=== PATIENT | female | born 1985 | race Caucasian/White ===

== ENCOUNTER 2019-06-22 21:28 | Emergency (ER) | payer BC ==
[2019-06-22 21:37] VITALS: RESP 16; TEMP 98.5
[2019-06-22 22:06] LABS: Basophils # (A) 0.1 k/uL (0-0.2); Basophils % (A) 1 %; Eosinophils # (A) 0.1 k/uL (0-0.7); Eosinophils % (A) 1 %; HCT 44.6 % (34.0-46.0); HGB 14.8 gm/dL (11.4-16.0); Lymphocytes # (A) 3.1 k/uL (1.0-4.8); Lymphocytes % (A) 28 %; MCH 29.8 pg (25.0-35.0); MCHC 33.3 g/dL (31.0-37.0); MCV 89.5 fL (80.0-100.0); Mean Platelet Volume 7.8; Monocytes # (A) 0.5 k/uL (0-1.0); Monocytes % (A) 4 %; Neutrophils # (A) 7.1 k/uL (1.3-7.7); Neutrophils % (A) 64 %; Platelet Count 303 k/uL (150-450); RBC 4.98 m/uL (3.80-5.40); RDW 11.8 % (11.5-15.5); WBC 11.1 k/uL (3.8-10.6)
[2019-06-22 22:16] LABS: ALT 31 U/L (4-34); AST 31 U/L (14-36); African American GFR (CKD) >90 (>60 ml/min/1.73 sqM); Albumin 4.9 g/dL (3.5-5.0); Alkaline Phosphatase 68 U/L (38-126); Anion Gap 13 mmol/L; Blood Urea Nitrogen 13 mg/dL (7-17); Calcium 9.4 mg/dL (8.4-10.2); Carbon Dioxide 19 mmol/L (22-30); Chloride 107 mmol/L (98-107); Glucose 91 mg/dL (74-99); Magnesium 1.9 mg/dL (1.6-2.3); Non-African American GFR(CKD) >90 (>60 ml/min/1.73 sqM); Potassium 4.1 mmol/L (3.5-5.1); Sodium 139 mmol/L (137-145); Total Bilirubin 0.3 mg/dL (0.2-1.3); Total Protein 8.4 g/dL (6.3-8.2)
[2019-06-22 22:34] LABS: INR 0.9 (<1.2); Prothrombin Time 9.7 sec (9.0-12.0)
--- NOTE | 2019-06-22 22:56 | XR ---
EXAMINATION TYPE: XR chest 2V DATE OF EXAM: 06/22/2019 COMPARISON: NONE HISTORY: Chest pain TECHNIQUE: 2 views FINDINGS: Heart and mediastinum are normal. Lungs are clear. Diaphragm is normal. Bony thorax appears normal. IMPRESSION: Normal chest.
[2019-06-22 23:01] LABS: D-Dimer 0.61 mg/L FEU (<0.60)
--- NOTE | 2019-06-22 23:04 | ED ---
Chest Pain HPI - General Chief Complaint: Chest Pain Stated Complaint: Chest Pain Time Seen by Provider: 06/22/19 21:35 Source: patient Mode of arrival: wheelchair Limitations: no limitations - History of Present Illness Initial Comments: The patient is a 34-year-old female with no past medical history of presents emergency room with reported chest pain. She states that she was at home talking to her about work-related issues when she began having sudden onset of left-sided chest pain with radiation into her left arm. Also reports to left arm numbness. States that it made her short of breath. [place] like she was going to pass out. She told her and they immediately got into the car and drove 35 minutes to the hospital. By the time she arrived to the hospital the pain had completely resolved. She denies a history of similar in the past. No previous history of cardiac disease or pulmonary issues. No history of DVT or PE. No family history of blood clotting disorders or sudden cardiac . Denies any calf pain or swelling. No ripping or tearing sensation to her back. No family history of connective tissue disorders. Patient is a nonsmoker. Has an IUD denies . No abdominal pain, nausea, vomiting or diaphoresis. There are no other alleviating, precipitating or modifying factors - Related Data Allergies Allergy/AdvReac Type Severity Reaction Status Date / Time tetracycline AdvReac mom is Verified 06/22/19 21:37 allergic Review of Systems ROS Statement: Those systems with pertinent positive or pertinent negative responses have been documented in the HPI. ROS Other: All systems not noted in ROS Statement are negative. EKG Findings - EKG Comments: EKG Findings:: EKG demonstrates normal sinus rhythm with a ventricular rate of 72. Current 122. QRS 92. QTC of 455. There is an inverted T-wave in lead 3. No acute ST segment elevations. Past Medical History Past Medical History: No Reported History History of Any Multi-Drug Resistant Organisms: None Reported Past Surgical History: No Surgical Hx Reported Past Psychological History: No Psychological Hx Reported Smoking Status: Never smoker Past Alcohol Use History: None Reported Past Drug Use History: None Reported General Exam Limitations: no limitations General appearance: alert, in no apparent distress Head exam: Present: atraumatic, normocephalic, normal inspection Eye exam: Present: normal appearance, PERRL, EOMI. Absent: scleral icterus, conjunctival injection, periorbital swelling ENT exam: Present: normal exam, mucous membranes moist Neck exam: Present: normal inspection. Absent: tenderness, meningismus, lymphadenopathy Respiratory exam: Present: normal lung sounds bilaterally. Absent: respiratory distress, wheezes, rales, rhonchi, stridor Cardiovascular Exam: Present: regular rate, normal rhythm, normal heart sounds. Absent: systolic murmur, diastolic murmur, rubs, gallop, clicks GI/Abdominal exam: Present: soft, normal bowel sounds. Absent: distended, tenderness, guarding, rebound, rigid Extremities exam: Present: normal inspection, full ROM, normal capillary refill. Absent: tenderness, pedal edema, joint swelling, calf tenderness Back exam: Present: normal inspection Neurological exam: Present: alert, oriented X3, CN II-XII intact Psychiatric exam: Present: normal affect, normal mood Skin exam: Present: warm, dry, intact, normal color. Absent: rash Course Vital Signs 06/22/19 06/22/19 06/22/19 21:32 22:30 23:00 Temperature 98.5 F Pulse Rate 73 84 75 Respiratory 16 16 Rate Blood Pressure 125/85 104/66 119/88 O2 Sat by Pulse 99 96 97 Oximetry 06/23/19 00:03 Temperature 98.5 F Pulse Rate 75 Respiratory 16 Rate Blood Pressure 119/88 O2 Sat by Pulse 97 Oximetry Chest Pain MDM - MDM Upon arrival the patient was placed in room 6. A thorough history and physical exam was performed. Laboratory studies were conducted and a 12-lead EKG was performed. lab studies are remarkable for a d-dimer of 0.61. Troponin is negative. Chest x-ray is performed which demonstrates no acute process. I did discuss results laboratory studies with the patient. Because of her elevated d- dimer did recommend a CT of the chest for which the patient did agree to. She is aware of the risks of radiation and does agree to this and denies . CT demonstrates no evidence of pulmonary embolism. I discussed results of the patient. She continues to remain asymptomatic. I recommended a second cardiac enzyme however the patient refused. I did recommend she follow up with her primary care physician Holter monitoring and echo. Patient understood this. If she has a new or worsening symptoms she should return to the emergency room. The patient was in agreement treatment plan she is discharged home in stable condition Disposition Clinical Impression: Chest pain Disposition: HOME SELF-CARE Condition: Stable Instructions (If sedation given, give patient instructions): Chest Pain (ED) Additional Instructions: Please follow up with your primary care doctor. I did recommend Holter monitoring and echo. Return to the emergency room for any new or worsening symptoms Is patient prescribed a controlled substance at d/c from ED?: No Referrals: None,Stated [Primary Care Provider] - 1-2 days Time of Disposition: 23:56
--- NOTE | 2019-06-22 23:35 | CT ---
EXAMINATION TYPE: CT chest angio for PE DATE OF EXAM: 06/22/2019 COMPARISON: None HISTORY: elevated d-dimer. Rule out PE CT DLP: 640.2 mGycm Automated exposure control for dose reduction was used. CONTRAST: Performed with IV Contrast, patient injected with 80 mL of Isovue 370. There are 3-D post processed images. The lungs are clear of infiltrate. There is no evidence of a pulmonary mass. There is no pleural effu funmilayo. There is no pericardial effusion. Upper abdominal soft tissues are intact. There are no hilar masses. There is no mediastinal adenopathy. There is normal contrast opacification of the pulmonary arteries. There are no filling defect. Thoracic aorta is intact. There is no aneury sm or dissection. Thoracic spine is intact. There is no compression fracture. Sternum is intact. The ribs appear intact . IMPRESSION: Negative exam. No evidence of pulmonary embolism.
[2019-06-22 23:59] VITALS: BP 119/88; PULSE 75
== END 2019-06-23 00:05 | disposition home or self-care (01) ==
LOC: EC 21:28
DX: R07.9 Chest pain, unspecified (principal); R79.89 Other specified abnormal findings of blood chemistry; Z88.1 Allergy status to other antibiotic agents
CPT/HCPCS: 99285; 36415; 93005; 85379; 80053; 83735; 84484; 85025; 85610; 85730; 71046; 71275; Q9967

== ENCOUNTER 2019-07-08 14:38 | Emergency (ER) | payer BC ==
[2019-07-08 14:50] VITALS: RESP 18
--- NOTE | 2019-07-08 15:55 | ED ---
Skin/Abscess/FB HPI - General Chief complaint: Skin/Abscess/Foreign Body Stated complaint: anal abcess Time Seen by Provider: 07/08/19 15:06 Source: patient Mode of arrival: ambulatory Limitations: no limitations - History of Present Illness Initial comments: 34-year-old feel presenting today for chief complaint of abscess. Patient states she has pain to the left or the anus and has felt hard into this is been ongoing for 2 days. Patient denies any redness but he has drainage fever general malaise chills. Patient denies any purulent drainage from the rectum or bloody stools. Denies abdominal pain, history of crohns or ulcerative colitis. Patient denies any additional complaint or this occurring before. Remaining ROS (-) - Related Data Previous Rx's Medication Instructions Recorded Amoxic-Pot Clav 875-125Mg 1 tab PO Q12HR 7 Days #14 tab 07/08/19 [Augmentin 875-125] Allergies Allergy/AdvReac Type Severity Reaction Status Date / Time tetracycline AdvReac mom is Verified 07/08/19 14:49 allergic Review of Systems ROS Statement: Those systems with pertinent positive or pertinent negative responses have been documented in the HPI. ROS Other: All systems not noted in ROS Statement are negative. Past Medical History Past Medical History: No Reported History History of Any Multi-Drug Resistant Organisms: None Reported Past Surgical History: Adenoidectomy Past Psychological History: No Psychological Hx Reported Smoking Status: Never smoker Past Alcohol Use History: None Reported Past Drug Use History: None Reported General Exam - General Exam Comments Initial Comments: General: The patient is awake and alert, in no distress, and does not appear acutely ill. Eye: Pupils are equal, round and reactive to light, extra-ocular movements are intact. No nystagmus. There is normal conjunctiva bilaterally. No signs of icterus. Cardiovascular: There is a regular rate and rhythm. No murmur, rub or gallop is appreciated. Respiratory: Lungs are clear to auscultation, respirations are non-labored, breath sounds are equal. No wheezes, stridor, rales, or rhonchi. Gastrointestinal: Soft, non-distended, non-tender abdomen without masses or organomegaly noted. There is no rebound or guarding present. 4cm from anus laterally to the left midline, indurated around roughly 2cm, no redness, no spontaneous drainage Musculoskeletal: Normal ROM, no tenderness. Strength 5/5. Sensation intact. Radial pulses equal bilaterally 2+. Neurological: A&O x 3. CN II-XII intact grossly, There are no obvious motor or sensory deficits. Coordination appears grossly intact. Speech is normal. Skin: Skin is warm and dry and no rashes or lesions are noted. Psychiatric: Cooperative, appropriate mood & affect, normal judgment. Limitations: no limitations Course Vital Signs 07/08/19 07/08/19 14:48 17:36 Temperature 98.0 F 98.1 F Pulse Rate 116 H 89 Respiratory 18 18 Rate Blood Pressure 121/84 127/77 O2 Sat by Pulse 100 98 Oximetry Procedures - Incision & Drainage Consent Obtained: verbal consent Indication: abscess Site: buttock Size (cm): 2 Anesthetic Used: lidocaine 1% Amount (mLs): 2 I&D Cleaning Method: Iodine Sterile Field Used?: No Scalpel Used: #11 Needle Aspiration Performed?: No Irrigation Performed?: No I&D Drainage Obtained: Pus, Blood Patient Tolerated Procedure: well Medical Decision Making - Medical Decision Making 34yo female presenting today for cc possible abscess x 2 days. There was palpable induration concerning for perianal abscess no anal discharge or bleeding symptoms 2 days. No history. I&D was performed and was able to get 2 mL of purulent drainage inoculations were broken up. Patient will be initiated on Augmentin, and discharge her surgical follow-up. The patient is small no packing at this time. Discussed importance of return parameters for fevers, increasing swelling/pain or increasing drainage-she is agreeable to this care plan and discharge at this time. - Lab Data Result diagrams: 07/08/19 15:57 07/08/19 15:57 Lab Results 07/08/19 07/08/19 Range/Units 15:57 15:57 WBC 11.2 H (3.8-10.6) k/uL RBC 4.58 (3.80-5.40) m/uL Hgb 13.9 (11.4-16.0) gm/dL Hct 41.7 (34.0-46.0) % MCV 91.0 (80.0-100.0) fL MCH 30.2 (25.0-35.0) pg MCHC 33.2 (31.0-37.0) g/dL RDW 11.9 (11.5-15.5) % Plt Count 273 (150-450) k/uL Neutrophils % 78 % Lymphocytes % 16 % Monocytes % 5 % Eosinophils % 0 % Basophils % 0 % Neutrophils # 8.7 H (1.3-7.7) k/uL Lymphocytes # 1.7 (1.0-4.8) k/uL Monocytes # 0.5 (0-1.0) k/uL Eosinophils # 0.0 (0-0.7) k/uL Basophils # 0.1 (0-0.2) k/uL Sodium 137 (137-145) mmol/L Potassium 4.4 (3.5-5.1) mmol/L Chloride 101 (98-107) mmol/L Carbon Dioxide 28 (22-30) mmol/L Anion Gap 8 mmol/L BUN 9 (7-17) mg/dL Creatinine 0.73 (0.52-1.04) mg/dL Est GFR (CKD-EPI)AfAm >90 (>60 ml/min/1.73 sqM) Est GFR (CKD-EPI)NonAf >90 (>60 ml/min/1.73 sqM) Glucose 93 (74-99) mg/dL Calcium 9.8 (8.4-10.2) mg/dL Total Bilirubin 0.6 (0.2-1.3) mg/dL AST 23 (14-36) U/L ALT 21 (4-34) U/L Alkaline Phosphatase 75 (38-126) U/L Total Protein 7.9 (6.3-8.2) g/dL Albumin 4.4 (3.5-5.0) g/dL Disposition Clinical Impression: Perianal abscess Disposition: HOME SELF-CARE Condition: Good Instructions (If sedation given, give patient instructions): Abscess Incision and Drainage (ED) Additional Instructions: Please use medication as discussed. Please follow-up with family doctor in the next 2 days, general surgery in next week--immediate return to the ER for worsening symptoms. Please return to emergency room if the symptoms increase or worsen or for any other concerns. Prescriptions: Amoxic-Pot Clav 875-125Mg [Augmentin 875-125] 1 tab PO Q12HR 7 Days #14 tab Is patient prescribed a controlled substance at d/c from ED?: No Referrals: Maxim Marte MD [Primary Care Provider] - 1-2 days Maynor Mendes DO [Doctor of Osteopathic Medicine] - 1-2 days Time of Disposition: 17:15
[2019-07-08] MEDS ORDERED: ONDANSETRON 4 MG/2 ML VIAL IVP STA (16:20)
[2019-07-08] MEDS ORDERED: LIDOCAINE 1% INJ 10MG/ML (20 ML MDV) SQ ONE (16:20)
[2019-07-08] MEDS ORDERED: SODIUM CHLORIDE 0.9% 500 ML 500 ML IV ONE (16:20)
[2019-07-08 16:28] LABS: Basophils # (A) 0.1 k/uL (0-0.2); Basophils % (A) 0 %; Eosinophils % (A) 0 %; HCT 41.7 % (34.0-46.0); HGB 13.9 gm/dL (11.4-16.0); Lymphocytes # (A) 1.7 k/uL (1.0-4.8); Lymphocytes % (A) 16 %; MCH 30.2 pg (25.0-35.0); MCHC 33.2 g/dL (31.0-37.0); Mean Platelet Volume 7.6; Monocytes # (A) 0.5 k/uL (0-1.0); Monocytes % (A) 5 %; Neutrophils # (A) 8.7 k/uL (1.3-7.7); Neutrophils % (A) 78 %; Platelet Count 273 k/uL (150-450); RBC 4.58 m/uL (3.80-5.40); RDW 11.9 % (11.5-15.5); WBC 11.2 k/uL (3.8-10.6)
[2019-07-08 16:34] LABS: ALT 21 U/L (4-34); AST 23 U/L (14-36); African American GFR (CKD) >90 (>60 ml/min/1.73 sqM); Albumin 4.4 g/dL (3.5-5.0); Alkaline Phosphatase 75 U/L (38-126); Anion Gap 8 mmol/L; Blood Urea Nitrogen 9 mg/dL (7-17); Calcium 9.8 mg/dL (8.4-10.2); Carbon Dioxide 28 mmol/L (22-30); Chloride 101 mmol/L (98-107); Glucose 93 mg/dL (74-99); Non-African American GFR(CKD) >90 (>60 ml/min/1.73 sqM); Potassium 4.4 mmol/L (3.5-5.1); Sodium 137 mmol/L (137-145); Total Bilirubin 0.6 mg/dL (0.2-1.3); Total Protein 7.9 g/dL (6.3-8.2)
[2019-07-08] MEDS ORDERED: AMOXIC-POT CLAV 875MG STARTER PACK 2 TAB BTL PO STA (17:16)
[2019-07-08 17:36] VITALS: BP 127/77; PULSE 89; TEMP 98.1
== END 2019-07-08 17:36 | disposition home or self-care (01) ==
LOC: EC 14:38
DX: K61.0 Anal abscess (principal); Z88.1 Allergy status to other antibiotic agents
CPT/HCPCS: 36415; 80053; 85025; 96374; 96361; 99283; 10060; J2405; J2001